=== PATIENT | female | born 1975 | race African-American/Black ===

== ENCOUNTER 2018-03-23 12:23 | Emergency (ER) | payer SELFPAY ==
[~2018-03-23] VITALS: Ht 160 cm; Wt 75.0 kg
[~2018-03-23 12:23] MED LIST: CONCEPT OB PO; DIPHENHYDRAM PO; DUET DH1 PO; NO HOME MEDS; PRENATA5 OR; PRENATAL1 TAB PO; ULTRAM50 MG OR
[2018-03-23] MEDS ORDERED: TRAMADOL HCL50 MG PO (12:58)
[2018-03-23] MEDS ORDERED: AUGMENTIN875TAB PO (12:58)
[2018-03-23 13:05] VITALS: BP 141/83
== END 2018-03-23 13:25 | disposition home or self-care (01) | DRG 605 ==
LOC: ED 12:23
PROC: 2W3KX1Z Immobilization of Left Finger using Splint (ICD-10-PCS; principal; 2018-03-23)
DX: S61.052A Open bite of left thumb without damage to nail, initial encounter (principal); W54.0XXA Bitten by dog, initial encounter; Y93.01 Activity, walking, marching and hiking; Y92.414 Local residential or business street as the place of occurrence of the external cause